=== PATIENT | female | born 1990 | race Hispanic/Latino ===

== ENCOUNTER 2017-06-17 11:26 | Emergency (ER) | payer BC, SELFPAY ==
[2017-06-17 12:26] LABS: #Eosinphils 0.2 thou/uL (0.0-0.7); #Monocytes 0.6 thou/uL (0.11-0.59); #Neutrophils 4.3 thou/uL (1.40-6.50); %Basophils 0.5 % (0.0-1.0); %Eosinophils 2.4 % (0.0-10.0); %Lymphocytes 27.7 % (21.0-51.0); %Monocytes 8.5 % (0.0-10.0); %Neutrophils 60.9 % (42.0-75.0); Mean Corpuscular HGB CONC 33.7 g/dL (32.0-36.0); Mean Corpuscular Hemoglobin 29.5 pg (27.0-31.0); Mean Corpuscular Volume 87.3 fl (81.0-99.0); Mean Platelet Volume 7.9 fL (7.4-10.4); Platelet Count 276 thou/uL (130-400); RBC Distribution Width 11.8 % (11.5-14.5); Red Blood Cell (RBC) Count 4.74 mill/uL (4.20-5.40); White Blood Cell (WBC) Count 7.1 thou/uL (4.8-10.8)
[2017-06-17 12:51] LABS: ALT (SGPT) 10 U/L (8-55); AST (SGOT) 15 U/L (5-34); Albumin 4.4 g/dL (3.5-5.0); Alkaline Phosphatase 75 U/L (40-150); Anion Gap 11 mmol/L (10-20); BUN (Urea Nitrogen) 14 mg/dL (7.0-18.7); Bilirubin, Total 0.3 mg/dL (0.2-1.2); Calc. Creatinine Clearance 0 mL/min (70-130); Calcium 9.6 mg/dL (7.8-10.44); Carbon Dioxide 25 mmol/L (22-29); Chloride 105 mmol/L (98-107); Estimated GFR-MDRD Greater than 90; Globulin 3.3 g/dL (2.4-3.5); Glucose 121 mg/dL (70-105); Potassium 3.9 mmol/L (3.5-5.1); Protein, Total 7.7 g/dL (6.0-8.3); Sodium 137 mmol/L (136-145)
[2017-06-17 12:55] LABS: CKMB 1.9 ng/mL (0-6.6); Troponin I Less than 0.010 ng/mL (< 0.028)
[2017-06-17 14:08] LABS: Bilirubin Negative (Negative); Blood, Urine Negative (Negative); Clarity CLEAR (Clear); Glucose, Urine (Dipstick) Negative (Negative); Leukocyte Small (Negative); Nitrite Negative (Negative); Protein, Urine (Dipstick) Trace mg/dL (Neg-Trace); Specific Gravity, Urine 1.023 (1.002-1.036); Urobilinogen 0.2 mg/dL (0.2-1.0)
--- NOTE | 2017-06-17 14:10 | CT ---
CT HEAD NONCONTRAST: History: Dizziness, syncope. FINDINGS: No comparison. There is no evidence of acute intracranial hemorrhage or infarct. The ventricles appear normal in siz e, shape, and position. There is no mass effect or shift of midline structures. Visualized paranasal sinuses remain well aerated. IMPRESSION: No acute intracranial abnormalities are demonstrated on noncontrast CT head. POS: [facility]
[2017-06-17 14:16] LABS: Pregnancy Test - Urine (BHCG) Negative (Negative); Pregu Control Background? CLEAR/WHITE (CLR/WHITE); Pregu Control Bar Appear? YES (CONTROL BAR); Specific Gravity 1.023 (1.002-1.036)
[2017-06-17 14:19] LABS: Bacteria/HPF Rare-Few HPF (None Seen); Hyaline Casts/LPF 0-3 HYALINE CAST LPF (0-3 Hyaline); Pathc Cast-AUWi Flag 0.14 (0-2.49)
[2017-06-17 14:29] LABS: Amphetamine Not Detected (NotDetected); Benzodiazepine Screen Not Detected (NotDetected); Cocaine Metabolite Screen Not Detected (NotDetected); Medtox Reader # READER 1; Methamphetamine Not Detected (NotDetected); Opiate Screen Not Detected (NotDetected); Phencyclidine (PCP) Not Detected (NotDetected); THC/Cannabinoid Screen Not Detected (NotDetected)
[2017-06-17 14:30] LABS: Barbiturates Screen Not Detected (NotDetected); Medtox Control Line Valid? VALID (VALID); Methadone Not Detected (NotDetected); Oxycodone Screen Not Detected (NotDetected); Tricyclic Screen Not Detected (NotDetected)
--- NOTE | 2017-06-17 15:54 | ULT ---
PELVIC ULTRASOUND: (Transabdominal, transvaginal, alfaro scale, color flow and spectral doppler) 06/17/17 HISTORY: 27-year-old female with right lower quadrant pain. FINDINGS: The uterus measures 7 x 3.1 x 3.5 cm without focal mass or endometrial fluid. The endometrium measure s 7 mm in thickness. The right ovary is not visualized. The left ovary measures 2.9 x 2.5 x 2.3 cm and demonstrates flow. A 1.5 cm cyst is seen in the left ovary. No right sided adnexal mass is identified. No free fluid is seen in the cul-de-sac. IMPRESSION: Nonvisualization of the right ovary, otherwise unremarkable exam. POS: [facility]
== END 2017-06-17 16:05 | disposition home or self-care (01) ==
LOC: ERS 11:26
DX: R00.2 Palpitations (principal); R07.9 Chest pain, unspecified; R53.1 Weakness; R42 Dizziness and giddiness
CPT/HCPCS: 36415; 70450; 76856; 80053; 80306; 81003; 81015; 81025; 82553; 84484; 85025; 87086; 93005; 96360; 96361

== ENCOUNTER 2018-01-07 09:59 | Emergency (ER) | payer SELFPAY ==
--- NOTE | 2018-01-07 10:46 | RAD ---
FRONTAL RADIOGRAPH CHEST: Date: 01-07-18 History: Sore throat and cough. FINDINGS: Heart and mediastinal contours appear grossly unremarkable. No pneumothorax, pleural fluid, focal con solidation or alveolar edema. IMPRESSION: No acute findings. POS: [facility]
== END 2018-01-07 10:50 | disposition home or self-care (01) ==
LOC: ERS 09:59
DX: J06.9 Acute upper respiratory infection, unspecified (principal)
CPT/HCPCS: 71045; 87081; 87430; 87804; 94640

== ENCOUNTER 2018-03-11 09:18 | Emergency (ER) | payer SELFPAY ==
[2018-03-11 09:55] LABS: #Basophils 0.1 thou/uL (0.0-0.2); #Eosinphils 0.2 thou/uL (0.0-0.7); #Lymphocytes 1.9 thou/uL (1.20-3.40); #Monocytes 0.4 thou/uL (0.11-0.59); #Neutrophils 4.6 thou/uL (1.40-6.50); %Basophils 0.8 % (0.0-1.0); %Eosinophils 2.4 % (0.0-10.0); %Lymphocytes 27.3 % (21.0-51.0); %Monocytes 5.5 % (0.0-10.0); Hemoglobin 14.1 g/dL (12.0-16.0); Mean Corpuscular HGB CONC 34.6 g/dL (32.0-36.0); Mean Corpuscular Hemoglobin 30.6 pg (27.0-31.0); Mean Corpuscular Volume 88.7 fL (78.0-98.0); Mean Platelet Volume 8.3 fL (7.4-10.4); Platelet Count 247 thou/uL (130-400); RBC Distribution Width 11.7 % (11.5-14.5); White Blood Cell (WBC) Count 7.1 thou/uL (4.8-10.8)
[2018-03-11 10:11] LABS: Bilirubin Negative (Negative); Blood, Urine Negative (Negative); Clarity CLEAR (Clear); Glucose, Urine (Dipstick) Negative (Negative); Leukocyte Negative (Negative); Nitrite Negative (Negative); Protein, Urine (Dipstick) Negative (Neg-Trace); Specific Gravity, Urine 1.031 (1.002-1.036); Urobilinogen 0.2 mg/dL (0.2-1.0)
[2018-03-11 10:16] LABS: Pregnancy Test - Urine (BHCG) Negative (Negative); Specific Gravity 1.031 (1.002-1.036)
[2018-03-11 10:17] LABS: Pregu Control Background? CLEAR/WHITE (CLR/WHITE); Pregu Control Bar Appear? YES (CONTROL BAR)
[2018-03-11 10:20] LABS: ALT (SGPT) 13 U/L (8-55); AST (SGOT) 15 U/L (5-34); Albumin 4.3 g/dL (3.5-5.0); Alkaline Phosphatase 76 U/L (40-150); Anion Gap 13 mmol/L (10-20); BUN (Urea Nitrogen) 16 mg/dL (7.0-18.7); Bilirubin, Total 0.5 mg/dL (0.2-1.2); Calc. Creatinine Clearance 0 mL/min (70-130); Calcium 9.9 mg/dL (7.8-10.44); Carbon Dioxide 24 mmol/L (22-29); Chloride 108 mmol/L (98-107); Estimated GFR-MDRD 89; Globulin 3.4 g/dL (2.4-3.5); Glucose 112 mg/dL (70-105); Lipase 11 U/L (8-78); Protein, Total 7.7 g/dL (6.0-8.3); Sodium 141 mmol/L (136-145)
[2018-03-11] MEDS ORDERED: Ondansetron PF 4 MG/2 ML Vial ONE (10:29)
[2018-03-11] MEDS ORDERED: Ondansetron ODT 4 MG TAB ONE (10:30)
[2018-03-11] MEDS ORDERED: diphenhydrAMINE 50 MG/ML VIAL ONE (10:58)
[2018-03-11] MEDS ORDERED: methylPREDNISolone Sod Succ/PF 125 MG/2 ML VIAL ONE (11:09)
--- NOTE | 2018-03-11 11:15 | CT ---
CT ABDOMEN AND PELVIS WITH CONTRAST: Comparison: None. History: Intermittent right lower quadrant abdominal pain for one week. Technique: Multiple contiguous axial images were obtained in a CT of the abdomen and pelvis with cont rast. Coronal reformats were performed. FINDINGS: Patient is status post cholecystectomy. The uterus is either very small and tilted to the left or the patient only has a latasha-uterus. The left ovary is visualized. No right ovary is definitely seen. The liver, kidneys, adrenal glands, spleen, and pancreas are unremarkable. No free air, free fluid, o r stranding changes are seen in the abdomen or pelvis. The appendix is normal. The large and small cristopher wel are unremarkable. IMPRESSION: 1. No evidence of acute intraabdominal/pelvic abnormality. 2. 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 POS: [facility]
[2018-03-11] MEDS ORDERED: ISOVUE-370 76%-LOCM 1 ML ONE (11:38)
[2018-03-11] MEDS ORDERED: Famotidine/PF 20 mg/2ml Vial ONE (11:50)
[2018-03-11] MEDS ORDERED: Famotidine 20 MG TAB ONE (11:55)
== END 2018-03-11 13:20 | disposition home or self-care (01) ==
LOC: ERS 09:18
DX: R10.31 Right lower quadrant pain (principal); R11.0 Nausea; F41.9 Anxiety disorder, unspecified; Z79.51 Long term (current) use of inhaled steroids
CPT/HCPCS: 36415; 74177; 80053; 81003; 81025; 83690; 85025; 96361; 96374; 96375; J1200; J2405; J2930; Q0162; S0028

== ENCOUNTER 2018-05-06 22:31 | Emergency (ER) | payer BC, SELFPAY ==
[2018-05-07 00:37] LABS: ALT (SGPT) 11 U/L (8-55); AST (SGOT) 12 U/L (5-34); Albumin 4.1 g/dL (3.5-5.0); Alkaline Phosphatase 91 U/L (40-150); Anion Gap 9 mmol/L (10-20); BUN (Urea Nitrogen) 18 mg/dL (7.0-18.7); Bilirubin, Total 0.2 mg/dL (0.2-1.2); Calc. Creatinine Clearance 0 mL/min (70-130); Calcium 9.4 mg/dL (7.8-10.44); Carbon Dioxide 28 mmol/L (22-29); Chloride 105 mmol/L (98-107); Estimated GFR-MDRD Greater than 90; Globulin 2.8 g/dL (2.4-3.5); Glucose 88 mg/dL (70-105); Potassium 4.3 mmol/L (3.5-5.1); Protein, Total 6.9 g/dL (6.0-8.3); Sodium 138 mmol/L (136-145)
[2018-05-07] MEDS ORDERED: diphenhydrAMINE 50 MG/ML VIAL ONE (00:39)
[2018-05-07] MEDS ORDERED: Metoclopramide HCl 10 MG/2 ML VIAL ONE (00:39)
[2018-05-07 01:50] LABS: #Basophils 0.1 thou/uL (0.0-0.2); #Eosinphils 0.3 thou/uL (0.0-0.7); #Lymphocytes 2.6 thou/uL (1.20-3.40); #Monocytes 0.7 thou/uL (0.11-0.59); #Neutrophils 4.5 thou/uL (1.40-6.50); %Basophils 0.7 % (0.0-1.0); %Eosinophils 3.9 % (0.0-10.0); %Lymphocytes 31.7 % (21.0-51.0); %Monocytes 8.6 % (0.0-10.0); %Neutrophils 55.3 % (42.0-75.0); Hemoglobin 13.3 g/dL (12.0-16.0); Mean Corpuscular Hemoglobin 30.9 pg (27.0-31.0); Mean Corpuscular Volume 91.1 fL (78.0-98.0); Mean Platelet Volume 8.2 fL (7.4-10.4); Platelet Count 222 thou/uL (130-400); RBC Distribution Width 11.4 % (11.5-14.5); Red Blood Cell (RBC) Count 4.29 mill/uL (4.20-5.40); White Blood Cell (WBC) Count 8.1 thou/uL (4.8-10.8)
[2018-05-07 01:57] LABS: BHCG - Serum Negative (NEGATIVE); Pregs Control Background? CLEAR/WHITE (CLR/WHITE); Pregs Control Bar Appear? YES (CONTROL BAR)
[2018-05-07] MEDS ORDERED: Ketorolac Tromethamine 30 MG/ML VIAL ONE (02:23)
[2018-05-07] MEDS ORDERED: methylPREDNISolone Sod Succ/PF 125 MG/2 ML VIAL ONE (02:23)
[2018-05-07] MEDS ORDERED: Magnesium 2 GM/50 ML BAG (IN WATER) ONE (02:23)
--- NOTE | 2018-05-09 17:02 | EKG ---
Test Reason : Blood Pressure : / mmHG Vent. Rate : 084 BPM Atrial Rate : 084 BPM P-R Int : 138 ms QRS Dur : 084 ms QT Int : 372 ms P-R-T Axes : 030 011 028 degrees QTc Int : 439 ms Normal sinus rhythm Normal ECG Confirmed by EVANS MARCH ([id number]), field map editor SPENCER SHRESTHA ([id number]) on 05/09/2018 5:02:43 PM Referred By: Confirmed By:EVANS MARCH
== END 2018-05-07 03:05 | disposition home or self-care (01) ==
LOC: ERS 22:31
DX: R42 Dizziness and giddiness (principal); R51 Headache; F41.9 Anxiety disorder, unspecified; Z79.51 Long term (current) use of inhaled steroids
CPT/HCPCS: 36415; 80053; 84703; 85025; 87804; 93005; 96365; 96367; 96375; J1200; J1885; J2765; J2930; J3475

== ENCOUNTER 2018-10-04 11:44 | Emergency (ER) | payer BC, SELFPAY | END 2018-10-04 12:36 | disposition home or self-care (01) | LOC: ERS 11:44 | DX: H10.022 Other mucopurulent conjunctivitis, left eye (principal); F41.9 Anxiety disorder, unspecified | CPT/HCPCS: 99283 ==

== ENCOUNTER 2018-11-18 20:13 | Emergency (ER) | payer SELFPAY ==
[2018-11-18] MEDS ORDERED: Ketorolac Tromethamine 60 MG/2 ML VIAL ONE (23:14)
== END 2018-11-18 23:10 | disposition home or self-care (01) ==
LOC: ERS 20:13
DX: T85.848A Pain due to other internal prosthetic devices, implants and grafts, initial encounter (principal); M79.622 Pain in left upper arm
CPT/HCPCS: 96372; 99283; J1885

== ENCOUNTER 2020-03-03 12:59 | Emergency (ER) | payer BC, SELFPAY ==
[2020-03-03] MEDS ORDERED: Ketorolac Tromethamine 30 MG/ML VIAL ONE (14:11)
== END 2020-03-03 14:33 | disposition home or self-care (01) ==
LOC: ERS 12:59
DX: U07.1 COVID-19 (principal)
CPT/HCPCS: 96372; 99283; J1885

== ENCOUNTER 2021-03-14 12:19 | Emergency (ER) | payer OTHER ==
[2021-03-14] MEDS ORDERED: Proparacaine 0.5% Opth 15 ML BOT ONE (13:49)
[2021-03-14] MEDS ORDERED: Fluorescein Opthalmic Strip ONE (13:49)
== END 2021-03-14 14:28 | disposition home or self-care (01) ==
LOC: ERS 12:19
DX: H10.89 Other conjunctivitis (principal)
CPT/HCPCS: 99283

== ENCOUNTER 2021-11-29 10:56 | Outpatient (CLI) | payer OTHER | END 2021-11-29 10:57 | disposition home or self-care (01) | LOC: DTY/OP 10:56 | PROVIDERS: ATTEND Student in an Organized Health Care Education/Training Program | DX: E66.01 Morbid (severe) obesity due to excess calories (principal); Z68.42 Body mass index [BMI] 45.0-49.9, adult | CPT/HCPCS: 97802 ==